=== PATIENT | female | born 1990 | race Two or more races ===

== ENCOUNTER → 2022-06-25 | Outpatient (CLI) | payer OTHER ==
[~2022-06-25] MED LIST: CIPR500 PO; FLUO20 PO; FLUOXETINE; HYDACE5 PO; OXCA150; PROM25S PR; RXONDA4ODT MM; [UNRECOGNIZED DRUG - REMARK]
[2022-06-26 12:56] LABS: Candida species (DNA Probe) Negative (NEGATIVE); G. vaginalis (DNA Probe) Positive (NEGATIVE); T. vaginalis (DNA Probe) Negative (NEGATIVE)
[2022-06-28 16:09] LABS: HPV 16 Negative (Negative); HPV 18 Negative (Negative); HPV OTHER HR TYPES Negative (Negative)
== END | disposition home or self-care (01) ==
LOC: LAB SHORT 11:27
PROVIDERS: Advanced Practice Midwife
DX: Z01.419 Encounter for gynecological examination (general) (routine) without abnormal findings (principal); N89.8 Other specified noninflammatory disorders of vagina
CPT/HCPCS: 87480; 87510; 87624; 87660; G0145

== ENCOUNTER → 2022-12-21 | Outpatient (CLI) | payer OTHER ==
[2022-12-23 01:09] LABS: CHLAMYDIA TRACHOMATIS, NAA Negative (Negative)
== END ==
LOC: LAB 10:12 → LAB SHORT 10:12
PROVIDERS: Nurse Practitioner Family
DX: R30.0 Dysuria (principal); R39.15 Urgency of urination
CPT/HCPCS: 87077; 87086; 87186; 87491; 87591

== ENCOUNTER → 2023-04-01 | Outpatient (CLI) | payer OTHER ==
[2023-04-02 12:10] LABS: Candida species (DNA Probe) Negative (NEGATIVE); G. vaginalis (DNA Probe) Positive (NEGATIVE); T. vaginalis (DNA Probe) Negative (NEGATIVE)
== END | disposition home or self-care (01) ==
LOC: LAB SHORT 13:01 → LAB 13:01
PROVIDERS: Registered Nurse Community Health
DX: N89.8 Other specified noninflammatory disorders of vagina (principal)
CPT/HCPCS: 87480; 87510; 87660